=== PATIENT | female | born 1975 | race American Indian/Alaskan Native ===

== ENCOUNTER 2017-01-12 12:49 | Emergency (ER) | payer BC, OTHER ==
[2017-01-12 12:49] VITALS: BMI 34.7
[2017-01-12 13:06] VITALS: RESP 18; TEMP 98.8; O2SAT 98
[2017-01-12] MEDS ORDERED: Sodium Chloride 0.9% 1,000 ML IV STA (13:12)
--- NOTE | 2017-01-12 13:16 | ED PDOC ---
Arrival/HPI - General Chief Complaint: GI Problem Time Seen by Provider: 01/12/17 13:06 Historian: Patient - History of Present Illness Narrative History of Present Illness (Text): 01/12/17 13:13 A 41 year old female, whose past medical history includes hypertension and lap band surgery 5 years ago, presents to the emergency department complaining of difficulty eating and drinking over the past 3 days. Patient reports epigastric abdominal pain, nausea and vomiting after solid or fluid intake. Patient denies any fever, chills, chest pain, shortness of breath or any other complaints. Time/Duration: Other (3 days) Symptom Course: Unchanged Quality: Other Context: Home Past Medical History - Provider Review Nursing Documentation Reviewed: Yes - Past History Past History: No Previous - Infectious Disease Hx of Infectious Diseases: None - Tetanus Immunization Tetanus Immunization: Unknown - Cardiac Hx Cardiac Disorders: Yes Hx Hypertension: Yes - Pulmonary Hx Respiratory Disorders: No - Neurological Hx Neurological Disorder: No - HEENT Hx HEENT Disorder: No - Renal Hx Renal Disorder: No - Endocrine/Metabolic Hx Endocrine Disorders: No - Hematological/Oncological Hx Blood Disorders: No - Integumentary Hx Dermatological Disorder: No - Musculoskeletal/Rheumatological Hx Musculoskeletal Disorders: No - Gastrointestinal Other/Comment: + lap band - Genitourinary/Gynecological Hx Genitourinary Disorders: No - Psychiatric Hx Psychophysiologic Disorder: No Hx Depression: No Hx Emotional Abuse: No Hx Physical Abuse: No Hx Substance Use: No - Surgical History Hx Hysterectomy: Yes Other/Comment: + lap band - Anesthesia Hx Anesthesia: Yes Hx Anesthesia Reactions: No Hx Malignant Hyperthermia: No - Suicidal Assessment Feels Threatened In Home Enviroment: No Family/Social History - Physician Review Nursing Documentation Reviewed: Yes Family/Social History: No Known Family HX Smoking Status: Never Smoked Hx Alcohol Use: No Hx Substance Use: No Hx Substance Use Treatment: No Allergies/Home Meds Allergies/Adverse Reactions: Allergies No Known Allergies Allergy (Verified 02/04/16 08:36) Home Medications: Home Meds Medication Instructions Recorded Confirmed Hydrochlorothiazide [HCTZ] 25 mg PO DAILY 02/13/15 01/12/17 Review of Systems - Physician Review All systems were reviewed & negative as marked: Yes - Review of Systems Constitutional: absent: Fevers, Night Sweats Respiratory: absent: SOB Cardiovascular: absent: Chest Pain Gastrointestinal: Abdominal Pain, Nausea, Vomiting, Appetite Changes ( Difficulty eating/drinking) Physical Exam Vital Signs Reviewed: Yes Vital Signs Temp Pulse Resp BP Pulse Ox 01/12/17 13:31 68 18 115/75 98 01/12/17 13:05 98.8 F 71 18 111/60 98 Temperature: Afebrile Blood Pressure: Normal Pulse: Regular Respiratory Rate: Normal Appearance: Positive for: Well-Appearing, Non-Toxic, Comfortable Pain Distress: None Mental Status: Positive for: Alert and Oriented X 3 - Systems Exam Head: Present: Atraumatic, Normocephalic Pupils: Present: PERRL Extroacular Muscles: Present: EOMI Conjunctiva: Present: Normal Mouth: Present: Moist Mucous Membranes Neck: Present: Normal Range of Motion Respiratory/Chest: Present: Clear to Auscultation, Good Air Exchange. No: Respiratory Distress, Accessory Muscle Use Cardiovascular: Present: Regular Rate and Rhythm, Normal S1, S2. No: Murmurs Abdomen: Present: Tenderness (Mild epigastric tenderness), Normal Bowel Sounds. No: Distention, Peritoneal Signs, Rebound, Guarding Back: Present: Normal Inspection Upper Extremity: Present: Normal Inspection. No: Cyanosis, Edema Lower Extremity: Present: Normal Inspection. No: Edema Neurological: Present: GCS=15, CN II-XII Intact, Speech Normal Skin: Present: Warm, Dry, Normal Color. No: Rashes Psychiatric: Present: Alert, Oriented x 3, Normal Insight, Normal Concentration Medical Decision Making ED Course and Treatment: 01/12/17 13:13 Impression: A 41 year old female with difficulty eating/drinking. Patient notes nausea, vomiting and epigastric discomfort. History of lap band surgery. Plan: -- Labs -- Urinalysis -- Zofran, Protonix and IV fluids -- Reassess and disposition Progress Notes: 01/12/17 13:28 Patient states she no longer wants to be evaluated and would like to go home. The patient is choosing to leave against medical advice. I have personally explained to the patient that choosing to do so may result in permanent bodily harm or . I have discussed at great length that without further evaluation and monitoring there may be unforeseen circumstances and/or deterioration causing permanent bodily harm or as a result of their choice. The patient is alert, oriented, and shows the mental capacity to make clear decisions regarding the patients health care at this time. The patient continues to wish to leave against medical advice. In light of the patients decision to leave against medical advice, follow-up has been arranged and the patient is aware of the importance to following up as instructed. The patient has been advised that they should return to the emergency room immediately if they change their mind at any time, or if their condition begins to change or worsen in any way. - Lab Interpretations I have reviewed the lab results: Yes - Medication Orders Current Medication Orders: Discontinued Medications Sodium Chloride (Sodium Chloride 0.9%) 1,000 mls @ 1,000 mls/hr IV .Q1H STA Stop: 01/12/17 14:11 Ondansetron HCl (Zofran Inj) 4 mg IVP STAT STA Stop: 01/12/17 13:13 Pantoprazole Sodium (Protonix Inj) 40 mg IVP STAT STA Stop: 01/12/17 13:13 - Scribe Statement The provider has reviewed the documentation as recorded by the Scribe Lauren Gonzalez Provider Scribe Attestation: All medical record entries made by the Scribe were at my direction and personally dictated by me. I have reviewed the chart and agree that the record accurately reflects my personal performance of the history, physical exam, medical decision making, and the department course for this patient. I have also personally directed, reviewed, and agree with the discharge instructions and disposition. Disposition/Present on Arrival - Present on Arrival Any Indicators Present on Arrival: No History of DVT/PE: No History of Uncontrolled Diabetes: No Urinary Catheter: No History of Decub. Ulcer: No History Surgical Site Infection Following: None - Disposition Have Diagnosis and Disposition been Completed?: Yes Diagnosis: Abdominal pain Disposition: AGAINST MEDICAL ADVICE Disposition Time: 01:30 Condition: UNKNOWN Discharge Instructions (ExitCare): Acute Abdominal Pain (ED), Against Medical Advice (ED) Additional Instructions: follow up with your doctor. return toe r with worsening symptoms or concerns. Referrals: [facility] [Outside] - Follow up with primary [facility] at [facility] [Outside] - Follow up with primary Vinh Solorio MD [Staff Provider] - Follow up with primary Forms: [employer] (Sinhala)
[2017-01-12 13:32] VITALS: BP 115/75; PULSE 68
== END 2017-01-12 13:50 | disposition left against medical advice (07) ==
LOC: ED 12:49
DX: R10.13 Epigastric pain (principal)

== ENCOUNTER 2017-07-13 14:51 | Emergency (ER) | payer BC, OTHER ==
[2017-07-13 14:52] VITALS: BMI 34.7
== END 2017-07-13 16:29 | disposition left against medical advice (07) ==
LOC: ED 14:51
DX: Z02.89 Encounter for other administrative examinations (principal); M79.602 Pain in left arm